=== PATIENT | female | born 1995 | race American Indian/Alaskan Native ===

== ENCOUNTER 2019-02-15 20:09 | Emergency (ER) | payer OTHER ==
--- NOTE | 2019-02-15 21:44 | Emergency Department Report ---
Blank Doc - Documentation Documentation: This is a 24-year-old female that presents with acute on chroninc headaches. Patient stated is a typically "migrane" headache for patient. Denies worst headache. Denies any head injruies. Exam: neuro exam within normal limits. This initial assessment/diagnostic orders/clinical plan/treatment(s) is/are subject to change based on patient's health status, clinical progression and re- assessment by fellow clinical providers in the ED. Further treatment and workup at subsequent clinical providers discretion. Patient/guardians urged not to elope from the ED as their condition may be serious if not clinically assessed and managed. Initial orders include: 1- Patient sent to [facility] for further evaluation and treatment
[2019-02-15] MEDS ORDERED: REGLAN IV ONE (23:23)
[2019-02-15] MEDS ORDERED: BENADRYL IV ONE (23:23)
[2019-02-15] MEDS ORDERED: NACL 0.9% 1000 ML 1,000 ML IV ONE (23:23)
[2019-02-15] MEDS ORDERED: TORADOL IV ONE (23:23)
[2019-02-15] MEDS ORDERED: DECADRON IV ONE (23:25)
--- NOTE | 2019-02-16 00:42 | Emergency Department Report ---
ED Headache HPI - General Chief Complaint: Headache Stated Complaint: HEADACHE, CHEST PAIN Time Seen by Provider: 02/15/19 21:43 - History of Present Illness Initial Comments: This is a 32-year-old female that presents with sore throat and bilateral ear pain. Timing/Duration: 1 week Quality: moderate Head Injury Location: frontal Recent Head Trauma: occasional headaches Associated Symptoms: facial pain Allergies/Adverse Reactions: Allergies No Known Allergies Allergy (Verified 11/01/15 16:16) Home Medications: Ambulatory Orders Lidocain2.5%/Prilocai2.5% [Emla] 5 gm TP ONCE PRN #1 tube 12/27/15 Docusate Sodium [Colace] 100 mg PO BID PRN #60 capsule 12/28/15 Ferrous Sulfate [Feosol 325 MG tab] 325 mg PO BID #60 tablet 12/28/15 Ibuprofen [Motrin 800 MG tab] 800 mg PO TID PRN #30 tablet 12/28/15 Vitamin 1 tab PO DAILY 12/28/15 Acetaminophen [Acetaminophen TAB] 1,000 mg PO Q6HR PRN #30 tablet 02/16/19 Metoclopramide [Reglan] 10 mg PO ACHS PRN #30 tablet 02/16/19 diphenhydrAMINE [Benadryl CAP] 25 mg PO Q6HR PRN #30 capsule 02/16/19 ED Review of Systems ROS: Stated complaint: HEADACHE, CHEST PAIN Other details as noted in HPI Constitutional: denies: chills, fever Eyes: denies: eye pain, eye discharge, vision change ENT: congestion Respiratory: denies: cough, shortness of breath, wheezing Cardiovascular: denies: chest pain, palpitations Endocrine: no symptoms reported Gastrointestinal: denies: abdominal pain, nausea, diarrhea Genitourinary: denies: urgency, dysuria, discharge Musculoskeletal: denies: back pain, joint swelling, arthralgia Skin: denies: rash, lesions Neurological: headache. denies: weakness, numbness, paresthesias, confusion, abnormal gait, vertigo Psychiatric: denies: anxiety, depression Hematological/Lymphatic: denies: easy bleeding, easy bruising ED Past Medical Hx - Past Medical History Previous Medical History?: Yes Hx Hypertension: No Hx Congestive Heart Failure: No Hx Diabetes: No Hx Deep Vein Thrombosis: No Hx Renal Disease: No Hx Sickle Cell Disease: No Hx Seizures: No Hx Asthma: No Hx COPD: No Hx HIV: No Additional medical history: Stomach ulcers - Surgical History Past Surgical History?: No - Social History Smoking Status: Never Smoker - Medications Home Medications: Home Medications Medication Instructions Recorded Confirmed Last Taken Type Lidocain2.5%/Prilocai2.5% [Emla] 5 gm TP ONCE PRN #1 tube 12/27/15 Unknown Rx Docusate Sodium [Colace] 100 mg PO BID PRN #60 capsule 12/28/15 Unknown Rx Ferrous Sulfate [Feosol 325 MG tab] 325 mg PO BID #60 tablet 12/28/15 Unknown Rx Ibuprofen [Motrin 800 MG tab] 800 mg PO TID PRN #30 tablet 12/28/15 Unknown Rx Vitamin 1 tab PO DAILY 12/28/15 12/28/15 12/27/15 History Acetaminophen [Acetaminophen TAB] 1,000 mg PO Q6HR PRN #30 tablet 02/16/19 Unknown Rx Metoclopramide [Reglan] 10 mg PO ACHS PRN #30 tablet 02/16/19 Unknown Rx diphenhydrAMINE [Benadryl CAP] 25 mg PO Q6HR PRN #30 capsule 02/16/19 Unknown Rx ED Physical Exam - General Limitations: No Limitations General appearance: alert, in no apparent distress - Head Head exam: Present: atraumatic, normocephalic, normal inspection - Eye Eye exam: Present: normal appearance, PERRL, EOMI. Absent: conjunctival injection, nystagmus Pupils: Present: normal accommodation - ENT ENT exam: Present: normal orophraynx, mucous membranes moist, TM's normal bilaterally, normal external ear exam - Neck Neck exam: Present: normal inspection, full ROM. Absent: tenderness, lymphadenopathy - Respiratory Respiratory exam: Present: normal lung sounds bilaterally, wheezes. Absent: respiratory distress, stridor, chest wall tenderness - Cardiovascular Cardiovascular Exam: Present: regular rate, normal heart sounds - GI/Abdominal GI/Abdominal exam: Present: soft, normal bowel sounds. Absent: distended, tenderness, guarding, rebound, rigid, bruit, hernia - Rectal Rectal exam: Present: deferred - Extremities Exam Extremities exam: Present: normal inspection, full ROM, normal capillary refill. Absent: tenderness, pedal edema, joint swelling, calf tenderness - Back Exam Back exam: Present: normal inspection, full ROM, muscle spasm. Absent: tenderness, CVA tenderness (R), CVA tenderness (L), paraspinal tenderness, vertebral tenderness, rash noted - Neurological Exam Neurological exam: Present: alert, oriented X3, CN II-XII intact, normal gait, reflexes normal. Absent: motor sensory deficit - Expanded Neurological Exam Expanded Patient oriented to: Present: person, place, time Speech: Present: fluid speech Cranial nerves: EOM's Intact: Normal, Gag Reflex: Normal, Tongue Deviation: Normal, Nystagmus: Normal, Facial Sensation: Normal Cerebellar function: Finger to Nose: Normal, Heel to Paz: Normal, Romberg: Normal Upper motor neuron: Curtis Neglect: Normal, Pronator Drift: Normal, Babinski Sign: Normal, Sensory Extinction: Normal Motor strength exam: RUE: 5, LUE: 5, RLE: 5 DTR: bicep (R): 2+, bicep (L): 2+, ankle (R): 2+, ankle (L): 2+ Best Eye Response (Solano): (4) open spontaneously Best Motor Response (Solano): (6) obeys commands Best Verbal Response (Solano): (5) oriented Solano Total: 15 - Psychiatric Psychiatric exam: Present: normal affect, normal mood - Skin Skin exam: Present: warm, dry, intact, normal color. Absent: rash ED Course Vital Signs 02/15/19 21:43 Temperature 98.3 F Pulse Rate 75 Respiratory 14 Rate Blood Pressure 114/73 O2 Sat by Pulse 99 Oximetry ED Medical Decision Making - Medical Decision Making Headache improved plan dc to home with with rx for benadryl reglan, tylenol, follow up with pcp in 2-3 days given referral to same, pt for dc to home in stable condition at this time. Critical care attestation.: If time is entered above; I have spent that time in minutes in the direct care of this critically ill patient, excluding procedure time. ED Disposition Clinical Impression: Headache Qualifiers: Headache type: unspecified Headache chronicity pattern: acute headache Intractability: not intractable Qualified Code(s): R51 - Headache Disposition: DC-01 TO HOME OR SELFCARE Is pt being admited?: No Does the pt Need Aspirin: No Condition: Stable Instructions: Acute Headache (ED) Prescriptions: Acetaminophen [Acetaminophen TAB] 1,000 mg PO Q6HR PRN #30 tablet PRN Reason: Headache diphenhydrAMINE [Benadryl CAP] 25 mg PO Q6HR PRN #30 capsule PRN Reason: headache Metoclopramide [Reglan] 10 mg PO ACHS PRN #30 tablet PRN Reason: Headache Referrals: PRIMARY CARE, [Primary Care Provider] - 3-5 Days Forms: Work/School Release Form(ED) Time of Disposition: 00:56
[2019-02-16 01:51] VITALS: BP 134/79
== END 2019-02-16 01:49 | disposition home or self-care (01) ==
LOC: ED 20:09
DX: R51 Headache (principal); H92.01 Otalgia, right ear; H92.02 Otalgia, left ear; R42 Dizziness and giddiness; Z79.899 Other long term (current) drug therapy
CPT/HCPCS: 93005; 93010; 96361; 96374; 96375; 99283; J1100; J1200; J1885; J2765; J7030